=== PATIENT | female | born 1985 | race Caucasian/White ===

== ENCOUNTER → 2016-05-20 | Outpatient (CLI) | payer OTHER ==
[2016-05-20 09:38] LABS: MEAN CELL VOLUME 91.2 FL (80.0-100.0); PLATELET COUNT 187 TH/MM3 (150-450); RED BLOOD COUNT 3.62 MIL/MM3 (4.00-5.30); RED CELL DISTRIBUTION WIDTH 13.2 % (11.6-17.2); REVIEW FLAG FINAL; WHITE BLOOD COUNT 9.7 TH/MM3 (4.0-11.0)
== END ==
LOC: CLAB 08:08
PROVIDERS: ATTEND Obstetrics & Gynecology
DX: R74.0 Nonspecific elevation of levels of transaminase and lactic acid dehydrogenase [LDH] (principal); Z33.1 Pregnant state, incidental
CPT/HCPCS: 36415; 82951; 85027

== ENCOUNTER 2016-07-25 23:45 | Inpatient (IN) | payer OTHER ==
[~2016-07-25] VITALS: Ht 160 cm; Wt 77.1 kg
[2016-07-26] VITALS (193 sets, daily range): BP systolic 110–154; BP diastolic 68–107; PULSE 64–108; RESP 16–18; TEMP 98.2–98.9
--- NOTE | 2016-07-26 00:26 | PD ---
HPI Chief Complaint LOF Date Seen: Jul 26, 2016 Travel History International Travel<30 Days: No Contact w/Intl Traveler<30Days: No Known Affected Area: No History of Present Illness HPI 31 yo @ 38w2d with VIDAL 08-07-2016. care with Dr. Dumont. with placenta previa, resolved and noted succinate lobe. Normal growth US. EFW 6lb6oz last week. Patient noted leakage of fluid at 22:30, clear to pink tinged and started to have UC q 5min. +FM. History Past Medical History Medical History: Denies Significant Hx Obstetric History Obstetric History G1 Past Surgical History Surgical History: No Previous Surgery Family History Family History: Negative Social History Alcohol Use: No Tobacco Use: No Substance Abuse: No Review of Systems General / Constitutional: No: Fever, Chills Eyes: No: Blurred Vision, Visual changes HENT: No: Headaches Cardiovascular: No: Chest Pain or Discomfort, Palpitations Respiratory: No: Cough, Short of Breath Gastrointestinal: Abdominal Pain (contractions), No: Nausea, Vomiting, Diarrhea Genitourinary: Discharge (clear LOF), No: Urgency, Frequency, Dysuria, Vaginal Bleeding Musculoskeletal: No: Limited ROM, Weakness Skin: No Rash, No Itching, No Lesions Neurologic: No: Focal Abnormalities, Coordination Problem Physical Exam Narrative GENERAL: Well-nourished, well-developed patient. NAD SKIN: Warm and dry. HEAD: Normocephalic and atraumatic. EYES: No scleral icterus. No injection or drainage. ENT: No nasal drainage noted. Mucous membranes pink. Airway patent. NECK: No JVD. CARDIOVASCULAR: Regular rate and rhythm without murmurs, gallops, or rubs. RESPIRATORY: Breath sounds equal bilaterally. No accessory muscle use. ABDOMEN/GI: Abdomen soft, non-tender, , no rebound, no guarding Gravid GENITOURINARY: External Genitalia: intact and normal in appearance SVE 1/70%/-2 Amnisure + FHT's: Category: I Baseline: 120 Reactive: + accelerations 155 Variability: mod Decels: [-] EXTREMITIES: No cyanosis, +2 edema, NT. UE DTR +2 BACK: Nontender without obvious deformity. No CVA tenderness. NEUROLOGICAL: Awake and alert. Motor and sensory grossly within normal limits. Normal speech. Data Data Vital Signs Reviewed: Yes Orders Vital Signs (Adult) .ON ADMISSION (07/26/16 00:03) ^ Labor Status (07/26/16 00:03) ^ Non Stress Test (07/26/16 00:03) Pamg-1 Test .ONCE (07/26/16 00:03) MDM Narrative Course / MDM 38w2d PROM Elevated BPs - asymptomatic CAT I FHT Plan Admit GBS negative Expectant management, pitocin augmentation as indicated. PIH labs ordered, patient is asymptomatic. Discussed Magnesium Sulfate if needed for elevated BPs, possible pre-eclampsia. Attending Attestation Dr. Marc for Dr. Dumont. Kerry Joshua MD Jul 26, 2016 00:26 Expectant management, pitocin augmentation as indicated. PIH labs ordered, patient is asymptomatic. Attending Attestation Dr. Marc for Dr. Dumont. Kerry Joshua MD Jul 26, 2016 00:26
[2016-07-26] MEDS: LACTATED RINGER'S 1000 ML INJ 1,000 ML IV SCH ×2 (00:53→10:10)
[2016-07-26] MEDS ORDERED: LACTATED RINGER'S 1000 ML INJ 1,000 ML IV PRN (00:53)
--- NOTE | 2016-07-26 00:53 | HHI.HP ---
History & Physical H&P Patient Name: Oralia Merrill Unit Number: [id number] Date of : 1985 Patient Status: Admitted Inpatient Attending Doctor: Breanne Marc MD HPI HPI Chief Complaint LOF Date Seen: Jul 26, 2016 Travel History International Travel<30 Days: No Contact w/Intl Traveler<30Days: No Known Affected Area: No History of Present Illness HPI 31 yo @ 38w2d with VIDAL 08-07-2016. care with Dr. Dumont. with placenta previa, resolved and noted succinate lobe. Normal growth US. EFW 6lb6oz last week. Patient noted leakage of fluid at 22:30, clear to pink tinged and started to have UC q 5min. +FM. History (Limited) History Past Medical History Medical History: Denies Significant Hx Obstetric History Obstetric History G1 Past Surgical History Surgical History: No Previous Surgery Family History Family History: Negative Social History Alcohol Use: No Tobacco Use: No Substance Abuse: No Allergies-Medications Allergies-Medications ROS Review of Systems General / Constitutional: No: Fever, Chills Eyes: No: Blurred Vision, Visual changes HENT: No: Headaches Cardiovascular: No: Chest Pain or Discomfort, Palpitations Respiratory: No: Cough, Short of Breath Gastrointestinal: Abdominal Pain (contractions), No: Nausea, Vomiting, Diarrhea Genitourinary: Discharge (clear LOF), No: Urgency, Frequency, Dysuria, Vaginal Bleeding Musculoskeletal: No: Limited ROM, Weakness Skin: No Rash, No Itching, No Lesions Neurologic: No: Focal Abnormalities, Coordination Problem Physical Exam Physical Exam Narrative GENERAL: Well-nourished, well-developed patient. NAD SKIN: Warm and dry. HEAD: Normocephalic and atraumatic. EYES: No scleral icterus. No injection or drainage. ENT: No nasal drainage noted. Mucous membranes pink. Airway patent. NECK: No JVD. CARDIOVASCULAR: Regular rate and rhythm without murmurs, gallops, or rubs. RESPIRATORY: Breath sounds equal bilaterally. No accessory muscle use. ABDOMEN/GI: Abdomen soft, non-tender, , no rebound, no guarding Gravid GENITOURINARY: External Genitalia: intact and normal in appearance SVE 1/70%/-2 Amnisure + FHT's: Category: I Baseline: 120 Reactive: + accelerations 155 Variability: mod Decels: [-] EXTREMITIES: No cyanosis, +2 edema, NT. UE DTR +2 BACK: Nontender without obvious deformity. No CVA tenderness. NEUROLOGICAL: Awake and alert. Motor and sensory grossly within normal limits. Normal speech. Data Data Data Vital Signs Reviewed: Yes Orders Vital Signs (Adult) .ON ADMISSION (07/26/16 00:03) ^ Labor Status (07/26/16 00:03) ^ Non Stress Test (07/26/16 00:03) Pamg-1 Test .ONCE (07/26/16 00:03) MDM MDM Narrative Course / MDM 38w2d PROM Elevated BPs - asymptomatic CAT I FHT Plan Admit GBS negative Expectant management, pitocin augmentation as indicated. PIH labs ordered, patient is asymptomatic. Discussed Magnesium Sulfate if needed for elevated BPs, possible pre-eclampsia. Attending Attestation Dr. Marc for Dr. Dumont. Kerry Joshua MD Jul 26, 2016 00:26 Kerry Joshua MD Jul 26, 2016 00:53
[2016-07-26] MEDS ORDERED: SODIUM CHLORID 0.9% 500 ML INJ 500 ML IV PRN (01:00)
[2016-07-26] MEDS ORDERED: MINERAL OIL 10 ML VIAL TOPICAL PRN (01:00)
[2016-07-26] MEDS ORDERED: LIDOCAINE HCL 1% 50 ML VIAL I-DERMAL PRN (01:00)
[2016-07-26] MEDS ORDERED: LIDOCAINE HCL 1% 50 ML VIAL INFIL PRN (01:00)
[2016-07-26] MEDS ORDERED: OXYTOCIN 30 UNITS-500ML PREMIX 500 ML IV ONE (01:00)
[2016-07-26] MEDS ORDERED: ONDANSETRON HCL 4 MG/2 ML VIAL IV PRN (01:00)
[2016-07-26] MEDS ORDERED: CITRIC ACID-SODIUM CITRATE LIQ 30 ML UDC PO SCH (01:00)
[2016-07-26 01:07] LABS: AUTOMATED NEUTROPHIL # 6.5 TH/MM3 (1.8-7.7); BASOPHIL # 0.1 TH/MM3 (0-0.2); BASOPHIL % 1.5 % (0.0-2.0); EOSINOPHIL # 0.1 TH/MM3 (0-0.4); EOSINOPHIL % 1.4 % (0.0-4.0); HEMATOCRIT 32.2 % (35.0-46.0); HEMO FLAGS DIFF FINAL; LYMPH % 14.7 % (9.0-44.0); LYMPHOCYTE # 1.3 TH/MM3 (1.0-4.8); MEAN CELL VOLUME 90.5 FL (80.0-100.0); MEAN CORPUSCULAR HGB CONC 35.4 % (32.0-36.0); MONO % 10.7 % (0.0-8.0); NEUT % 71.7 % (16.0-70.0); PLATELET COUNT 202 TH/MM3 (150-450); RED BLOOD COUNT 3.56 MIL/MM3 (4.00-5.30); RED CELL DISTRIBUTION WIDTH 14.2 % (11.6-17.2); WHITE BLOOD COUNT 9.1 TH/MM3 (4.0-11.0)
[2016-07-26] MEDS ORDERED: SODIUM CHLOR 0.9% 1000 ML INJ 1,000 ML IV PRN (01:13)
[2016-07-26 01:16] LABS: BLOOD, URINE TRACE (NEG); COMMENT (UR) CULT NOT INDICATED; CULTURE IF INDICATED CULT NOT INDICATED; GLUCOSE,URINE NEG (NEG); KETONE, URINE NEG (NEG); MUCUS URINE FEW /lpf (OCC); NITRITE,URINE NEG (NEG); SQUAMOUS EPITHELIAL CELL URINE 1 /hpf (0-5); URINE COLOR LIGHT-YELLOW (YELLW/STRAW)
[2016-07-26 01:20] LABS: ALT (GPT) 19 U/L (10-53); ANION GAP 10 MEQ/L (5-15); AST (GOT) 20 U/L (15-37); BICARBONATE 22.3 MEQ/L (21.0-32.0); BLOOD UREA NITROGEN 7 MG/DL (7-18); CHLORIDE 108 MEQ/L (98-107); GLOMERULAR FILTRATION RATE 112 ML/MIN (>89); POTASSIUM 3.9 MEQ/L (3.5-5.1); SODIUM (NA) 140 MEQ/L (136-145); URIC ACID 4.4 MG/DL (2.6-6.0)
[2016-07-26 01:22] LABS: ALKALINE PHOSPHATASE 165 U/L (45-117); TOTAL BILIRUBIN ADULT 0.3 MG/DL (0.2-1.0)
[2016-07-26] MEDS ORDERED: ePHEDrine/NS 25 MG/5 ML SYR ONE (06:31)
[2016-07-26] MEDS ORDERED: fentaNYL 2MCG-BUPIV 0.125% INJ 100 ML ONE (06:31)
[2016-07-26] MEDS: OXYTOCIN 30 UNITS/NS 500ML PREMIX IV SCH ×2 (07:16→16:45)
[2016-07-26] MEDS ORDERED: DO NOT ADMINISTER ANTICOAGULANTS PRN (08:00)
[2016-07-26] MEDS ORDERED: NO SYSTEM NARCOTICS PRN (08:00)
[2016-07-26] MEDS ORDERED: ePHEDrine/NS 25 MG/5 ML SYR IV PRN (08:00)
[2016-07-26] MEDS: fentaNYL 2MCG-BUPIV 0.125% 100 ML EPIDURAL SCH ×2 (13:18→18:41)
[2016-07-26] MEDS ORDERED: DIPHTH/TETANUS/ACEL PERTUSSIS (BOOSTER) 0.5 ML VIAL/PFS IM ONE (16:00)
[2016-07-26] MEDS ORDERED: MEASLES, MUMPS, RUBELLA VACCINE 0.5 ML VIAL SQ ONE (16:00)
--- NOTE | 2016-07-26 22:27 | PD.OB.DELI ---
Delivery Date: Jul 26, 2016 Anesthesia: Epidural Episiotomy: Midline Vaginal Delivery: Normal, Spontaneous Presentation: Occiput anterior Nuchal Cord: None Delayed cord clamping (45 sec): Yes Infant: Male, Single One Minute : 8 Five Minute : 9 Weight: 7-4 Placenta: Spontaneous delivery, Intact, 3 vessel cord Laceration: Episiotomy, 3 deg Repair: Chromic interrupted, Chromic running, Vicryl interrupted Justine Edwards MD Jul 26, 2016 22:27
[2016-07-26] MEDS ORDERED: BENZOCAINE 20% TOPICAL SPRAY 60 ML CAN TOPICAL PRN (22:30)
[2016-07-26] MEDS ORDERED: ONDANSETRON ODT 4 MG TAB PO PRN (22:30)
[2016-07-26] MEDS ORDERED: WITCH HAZEL 50%/GLYCERIN 12.5% 40 PAD JAR TOPICAL PRN (22:30)
[2016-07-26] MEDS ORDERED: oxyCODONE/ACETAMINOPHEN 5 MG/325 MG TAB PO PRN ×2 (22:30)
[2016-07-26] MEDS ORDERED: ALUMINUM/MAGNESIUM/SIMETH 30 ML CUP PO PRN (22:30)
[2016-07-26] MEDS ORDERED: ACETAMINOPHEN 325 MG TAB PO PRN (22:30)
[2016-07-26] MEDS ORDERED: ZOLPIDEM TARTRATE 5 MG TAB PO PRN (22:30)
[2016-07-26] MEDS ORDERED: SODIUM CHLORIDE 0.9% FLUSH 10 ML FLUSH IV FLUSH PRN (22:30)
[2016-07-26] MEDS: IBUPROFEN 600 MG TAB PO PRN (23:00)
[2016-07-27 01:00] VITALS: BP 131/81; PULSE 96; RESP 20; TEMP 98.2
[2016-07-27] MEDS: DOCUSATE SODIUM 50 MG/SENNA 8.6 MG TAB PO PRN ×2 (01:08→14:13)
[2016-07-27] MEDS: IBUPROFEN 600 MG TAB PO PRN ×2 (07:32→17:01)
[2016-07-27] MEDS ORDERED: SODIUM CHLORIDE 0.9% FLUSH 10 ML FLUSH IV FLUSH SCH (09:00)
--- NOTE | 2016-07-27 16:39 | HHI.OB ---
Subjective Post Day: 1 Remarks Pt doing well, some perineal pain but not too much Objective Vitals/I&O Vital Signs Date Time Temp Pulse Resp B/P Pulse Ox O2 Delivery O2 Flow Rate FiO2 07/27/16 01:00 131/81 07/27/16 01:00 98.2 96 20 07/26/16 23:46 108 135/68 07/26/16 23:36 18 07/26/16 23:30 91 125/83 07/26/16 23:25 18 07/26/16 23:15 93 126/76 07/26/16 23:03 18 07/26/16 23:01 96 130/86 07/26/16 22:51 18 07/26/16 22:30 18 07/26/16 22:00 18 07/26/16 21:15 98.6 18 07/26/16 21:00 83 143/91 07/26/16 20:30 85 149/87 07/26/16 20:21 18 07/26/16 20:15 76 144/85 07/26/16 20:15 18 07/26/16 20:04 82 146/87 07/26/16 19:45 94 154/95 07/26/16 19:34 18 07/26/16 19:30 92 138/87 07/26/16 19:15 83 07/26/16 19:10 80 07/26/16 19:05 82 07/26/16 19:00 18 07/26/16 19:00 80 150/95 07/26/16 19:00 82 07/26/16 18:55 72 07/26/16 18:50 74 07/26/16 18:45 98.3 07/26/16 18:45 71 07/26/16 18:45 81 140/85 07/26/16 18:41 16 07/26/16 18:40 79 07/26/16 18:35 82 07/26/16 18:30 72 07/26/16 18:30 68 130/81 07/26/16 18:25 68 07/26/16 18:20 74 07/26/16 18:15 71 133/81 07/26/16 18:15 72 07/26/16 18:10 84 07/26/16 18:05 102 4/24/17 18:00 79 07/26/16 18:00 84 18 145/95 07/26/16 17:50 77 07/26/16 17:45 98.5 07/26/16 17:45 77 128/86 07/26/16 17:45 77 07/26/16 17:40 73 07/26/16 17:35 82 07/26/16 17:30 76 07/26/16 17:30 91 149/94 07/26/16 17:30 16 07/26/16 17:25 73 07/26/16 17:20 74 07/26/16 17:15 73 147/94 07/26/16 17:15 75 07/26/16 17:10 82 07/26/16 17:05 77 07/26/16 17:00 82 144/104 07/26/16 17:00 83 07/26/16 16:55 77 07/26/16 16:50 86 07/26/16 16:45 74 134/84 07/26/16 16:40 81 Objective Remarks GENERAL: Well-nourished, well-developed patient. CARDIOVASCULAR: Regular rate and rhythm without murmurs, gallops, or rubs. RESPIRATORY: Breath sounds equal bilaterally. No accessory muscle use. ABDOMEN/GI: Abdomen soft, non-tender. Fundus: Firm, non-tender at umbilicus. GENITOURINARY: Light to moderate bleeding. EXTREMITIES: No cyanosis or edema, non-tender, without signs of DVT. Medications and IVs Current Medications Medications (Trade) Dose Ordered Sig/Kody Route Start Time Stop Time Status Last Admin Lactated Ringer's 1,000 ml @ 125 mls/hr Q8H IV 07/26/16 00:53 07/26/16 10:10 Lactated Ringer's 1,000 ml @ 3,000 mls/hr Q20M PRN IV 07/26/16 00:53 Sodium Chloride 500 ml @ 1,000 mls/hr ONCE PRN IV 07/26/16 01:00 08/02/16 00:59 (NS 1000 ml Inj) 1,000 ml @ 100 mls/hr Q10H PRN IV 07/26/16 01:13 (fentaNYL INJ) 50 mcg Q1H PRN IV PUSH 07/26/16 01:00 07/26/16 06:52 (fentaNYL INJ) 100 mcg Q1H PRN IV PUSH 07/26/16 01:00 Mineral Oil 10 ml 10 ml UNSCH PRN TOPICAL 07/26/16 01:00 Oxytocin 500 ml @ 0 mls/hr TITRATE IV 07/26/16 06:45 07/26/16 16:45 (fentaNYL 2MCG-BUPIV 0.125% INJ) 100 ml @ 0 mls/hr TITRATE EPIDURAL 07/26/16 08:00 07/26/16 18:41 (NS Flush) 2 ml BID IV FLUSH 07/27/16 09:00 (NS Flush) 2 ml UNSCH PRN IV FLUSH 07/26/16 22:30 (Tylenol) 650 mg Q4H PRN PO 07/26/16 22:30 (Motrin) 600 mg Q6H PRN PO 07/26/16 22:30 07/27/16 07:32 (Percocet 5-325 Mg) 1 tab Q4H PRN PO 07/26/16 22:30 (Percocet 5-325 Mg) 2 tab Q4H PRN PO 07/26/16 22:30 07/26/16 23:00 (Americaine 20% Top Spr) 1 spray Q4H PRN TOPICAL 07/26/16 22:30 07/27/16 01:09 (Tucks Pads) 1 applic QID PRN TOPICAL 07/26/16 22:30 07/27/16 01:08 (Verónica-Colace) 2 tab Q12H PRN PO 07/26/16 22:30 07/27/16 14:13 (Ambien) 5 mg HS PRN PO 07/26/16 22:30 (Mag-Al Plus Susp Liq) 15 ml Q8H PRN PO 07/26/16 22:30 (Zofran Odt) 4 mg Q6H PRN PO 07/26/16 22:30 Assessment/Plan Assessment and Plan PPD # 1 s/p with a third degree extension of episiotomy doing well 1. routine care Discharge Planning plan for dc in [facility],Justine Garcia MD Jul 27, 2016 16:39
[2016-07-27 20:25] VITALS: BP 140/94; PULSE 89; RESP 18; TEMP 97.8
[2016-07-28] MEDS: LACTATED RINGER'S 1000 ML INJ 1,000 ML IV SCH (01:36)
[2016-07-28] MEDS: DOCUSATE SODIUM 50 MG/SENNA 8.6 MG TAB PO PRN (02:40)
[2016-07-28] MEDS: IBUPROFEN 600 MG TAB PO PRN ×2 (02:40→12:00)
[2016-07-28 08:00] VITALS: BP 131/85; PULSE 77; RESP 18; TEMP 98.8
--- NOTE | 2016-07-28 13:03 | HHI.DCPOC ---
Discharge Care Plan Your Health Problems Are: Vaginal delivery Report Symptoms to Your Doctor -Temperate above 100.5 degrees -Redness, of incision or excessive or foul smelling drainage -Unusual pain or calf pain -Increased vaginal bleeding -Painful or difficulty urinating -Feelings of extreme sadness or anxiety after 2 weeks Goals to Promote Your Health * To prevent worsening of your condition and complications * To maintain your health at the optimal level Directions to Meet Your Goals Take your medications as prescribed Follow your dietary instruction Follow activity as directed Ensure plenty of rest for recovery Drink fluids for hydration Keep your appointments as scheduled Take your immunizations and boosters as scheduled If your symptoms worsen call your PCP, if no PCP go to Urgent Care Center or Emergency Room Smoking is Dangerous to Your Health. Avoid second hand smoke Call the 24-hour crisis hotline for domestic abuse at Justine Edwards MD Jul 28, 2016 13:03
== END 2016-07-28 18:28 | disposition home or self-care (01) | DRG 775 ==
LOC: HOBED 23:45 → H2EB 07-26 00:24 → H1EA 07-27 00:10
PROVIDERS: ADMIT Obstetrics & Gynecology; ATTEND Obstetrics & Gynecology
PROC: 0DQR0ZZ Repair Anal Sphincter, Open Approach (ICD-10-PCS; principal; 2016-07-26)
PROC: 10E0XZZ Delivery of Products of Conception, External Approach (ICD-10-PCS; 2016-07-26)
PROC: 0W8NXZZ Division of Female Perineum, External Approach (ICD-10-PCS; 2016-07-26)
PROC: 00HU33Z Insertion of Infusion Device into Spinal Canal, Percutaneous Approach (ICD-10-PCS; 2016-07-26)
PROC: 3E0R3CZ (ICD-10-PCS; 2016-07-26)
DX: O70.20 Third degree perineal laceration during delivery, unspecified (principal); Z37.0 Single live birth; Z3A.38 38 weeks gestation of pregnancy
CPT/HCPCS: 59025; 80053; 81001; 84112; 84550; 85025; 86900; 86901; 88307; 90715; J2405; J2590; J3010; J7120

== ENCOUNTER → 2017-06-07 | Outpatient (CLI) | payer OTHER ==
[2017-06-07 11:29] LABS: AUTOMATED NEUTROPHIL # 4.1 TH/MM3 (1.8-7.7); BASOPHIL % 0.6 % (0.0-2.0); EOSINOPHIL # 0.1 TH/MM3 (0-0.4); EOSINOPHIL % 1.1 % (0.0-4.0); HEMATOCRIT 36.1 % (35.0-46.0); HEMOGLOBIN 12.5 GM/DL (11.6-15.3); LYMPH % 22.3 % (9.0-44.0); LYMPHOCYTE # 1.4 TH/MM3 (1.0-4.8); MEAN CELL VOLUME 88.6 FL (80.0-100.0); MEAN CORPUSCULAR HEMOGLOBIN 30.8 PG (27.0-34.0); MEAN CORPUSCULAR HGB CONC 34.8 % (32.0-36.0); MEAN PLATELET VOLUME 7.1 FL (7.0-11.0); MONO % 10.2 % (0.0-8.0); MONOCYTE # 0.6 TH/MM3 (0-0.9); NEUT % 65.8 % (16.0-70.0); PLATELET COUNT 237 TH/MM3 (150-450); RED BLOOD COUNT 4.07 MIL/MM3 (4.00-5.30); RED CELL DISTRIBUTION WIDTH 13.2 % (11.6-17.2); WHITE BLOOD COUNT 6.2 TH/MM3 (4.0-11.0)
[2017-06-07 11:31] LABS: BILIRUBIN, URINE NEG (NEG); BLOOD, URINE NEG (NEG); GLUCOSE,URINE NEG (NEG); KETONE, URINE NEG (NEG); NITRITE,URINE NEG (NEG); URINE COLOR YELLOW (YELLW/STRAW); URINE LEUKOCYTE ESTERASE NEG (NEG)
[2017-06-07 11:58] LABS: TOTAL T3 98 NG/DL (60-181)
[2017-06-07 12:06] LABS: FREE T4 0.84 NG/DL (0.76-1.46)
[2017-06-07 14:02] LABS: HEPATITIS B SURFACE ANTIGEN NEGATIVE (NEGATIVE)
== END ==
LOC: CLAB 10:50
PROVIDERS: ATTEND Obstetrics & Gynecology
DX: Z11.4 Encounter for screening for human immunodeficiency virus [HIV] (principal); Z33.1 Pregnant state, incidental
CPT/HCPCS: 36415; 81001; 84144; 84439; 84443; 84480; 84702; 85025; 86592; 86703; 86762; 86850; 86900; 86901; 87340

== ENCOUNTER → 2017-07-08 | Outpatient (CLI) | payer OTHER ==
[2017-07-08 12:27] LABS: FREE T4 0.83 NG/DL (0.76-1.46)
== END ==
LOC: CLAB 10:16
PROVIDERS: ATTEND Obstetrics & Gynecology
DX: Z13.29 Encounter for screening for other suspected endocrine disorder (principal)
CPT/HCPCS: 36415; 84439; 84443; 84480

== ENCOUNTER 2018-01-11 05:28 | Inpatient (IN) ==
--- NOTE | 2018-01-10 08:54 | MH ---
cc: Eric Dumont MD DATE OF ADMISSION: 01/11/2018 ADMITTING DIAGNOSIS: 1. Term , breech presentation. HISTORY OF PRESENT ILLNESS: The patient is a 32-year-old white female, para 1-0-0-1 with an EDC of 01/15/2018 by early ultrasound. Her course was benign. She has a persistent breech at term, and is now admitted for delivery. PAST SURGICAL HISTORY: Third molars. OBSTETRIC HISTORY: One vaginal delivery at term, in 07/2016, A son. MEDICATIONS: Vitamins. ALLERGIES: Pediazole. TRANSFUSIONS: None. SOCIAL HISTORY: She is . She is an RN at [employer]. Alcohol, tobacco, drugs are none. REVIEW OF SYSTEMS: Negative. PHYSICAL EXAMINATION: GENERAL: This is a well-nourished, well-developed white female. VITAL SIGNS: Stable. HEENT: Normal. CHEST: Clear. HEART: Regular rate. BREASTS: Symmetrical. ABDOMEN: Benign. PELVIC: Normal external genitalia and BUS is normal. Cervix normal. EFW 3600 grams, breech presentation. Cervix closed. ASSESSMENT As above. She is now admitted for primary . While in the office, the risks and benefits and complications have been accepted. Ultrasound will be done in the center to check the position prior to surgery. Placenta is maternal right. MD ISHAN Guy/sean , 08:26 AM , 08:31 AM
[2018-01-11 06:33] LABS: Baso % (Auto) 0.6 % (0.0-2.0); Eos # (Auto) 0.1 th/mm3 (0.0-0.4); Eos % (Auto) 1.5 % (0.0-4.0); Hematocrit 31.1 % (35.0-46.0); Hemoglobin 10.6 gm/dL (11.6-15.3); Lymph # (Auto) 1.4 th/mm3 (1.0-4.8); Mean Corpuscular HGB Conc 34.1 % (32.0-36.0); Mean Corpuscular Hemoglobin 30.6 pg (27.0-34.0); Mean Corpuscular Volume 89.8 fL (80.0-100.0); Mean Platelet Volume 7.6 fL (7.0-11.0); Neut # (Auto) 5.4 th/mm3 (1.8-7.7); Neut % (Auto) 67.9 % (16.0-70.0); Platelet Count 178 th/mm3 (150-450); Red Blood Count 3.46 mil/mm3 (4.00-5.30); Red Cell Distribution Width 14.4 % (11.6-17.2); White Blood Count 7.9 th/mm3 (4.0-11.0)
[2018-01-11 06:45] LABS: Bilirubin,Urine Negative (Negative); Clarity,Urine Hazy (Clear); Color,Urine Yellow (Yellw/Straw); Glucose,Urine (UA) Negative (Negative); Leukocyte Esterase,Urine Negative (Negative); Mucus,Urine Few /lpf (Occasional); Nitrite,Urine Negative (Negative); Specific Gravity,Urine 1.015 (1.002-1.035); Squamous Epithelial Cell,Urine 1 /hpf (0-5)
[2018-01-11 06:48] LABS: Amphetamine Screen,Urine Neg (Neg); Barbiturate Screen,Urine Neg (Neg); Cannabinoid Screen,Urine Neg (Neg); Cocaine Screen,Urine Neg (Neg)
[2018-01-11] MEDS: Citric Acid/Sodium Citrate Liq 30 ML UDC PO SCH ×2 (06:54→07:09)
[2018-01-11 06:55] LABS: Opiate Screen,Urine Neg (Neg)
[2018-01-11] MEDS ORDERED: ceFAZolin 2 GM Premix Inj 2 GM/50 ML PIGGYBACK IV.SIG ONE (07:00)
[2018-01-11] MEDS ORDERED: Morphine Sulfate PF Inj 5 MG/10 ML Ampul ONE (07:07)
[2018-01-11] MEDS ORDERED: Simethicone 80 MG Chew Tablet PO PRN (07:40)
[2018-01-11] MEDS ORDERED: Senna/Docusate Sodium 8.6/50 MG Tablet PO PRN (07:40)
[2018-01-11] MEDS ORDERED: Oxytocin 30 Units/500ml Premix 30 UNITS/500 ML BAG IV.SIG ONE (07:40)
[2018-01-11] MEDS ORDERED: Phenylephrine/NS 1000 MCG/10ML Syringe IV.PUSH ONE (08:54)
[2018-01-11] MEDS ORDERED: Ketorolac Inj 30 MG/ML (IVP) Vial IV.PUSH ONE (08:54)
[2018-01-11] MEDS ORDERED: Ketorolac Inj 30 MG/ML (IVP) Vial IM ONE (08:54)
[2018-01-11] MEDS ORDERED: Ketorolac Inj 30 MG/ML (IVP) Vial IV.PUSH PRN (10:02)
[2018-01-11] MEDS ORDERED: Oxytocin 30 Units/500ml Premix 30 UNITS/500 ML BAG ONE (10:22)
[2018-01-11] MEDS ORDERED: Oxytocin 30 Units/500ml Premix 30 UNITS/500 ML BAG IV.SIG PRN (12:41)
--- NOTE | 2018-01-11 13:04 | MP ---
cc: Eric Dumont MD DATE OF OPERATION: 01/11/2018 PREOPERATIVE DIAGNOSES: 1. Term . 2. Burt breech presentation. POSTOPERATIVE DIAGNOSES: 1. Term . 2. Burt breech presentation. 3. Delivered. PROCEDURE PERFORMED: Primary low transverse section. ANESTHESIA: Spinal. SURGEON: Eric Dumont MD SYSTEM SALES CONSULTANT: Salma Day ESTIMATED BLOOD LOSS: 500 mL FLUIDS: 1.5 liters crystalloid. OBJECTIVE FINDINGS: Following induction of adequate spinal anesthesia, the patient was prepped and draped supine on the operating table in left lateral tilt position in the usual sterile fashion, with the bladder being drained via Wesley catheterization. The abdomen was opened through a Pfannenstiel incision using a knife to cut down through the skin to the fascia. The fascia opened transversely, stripped from the muscles, rectus muscle split in the midline and the peritoneum opened sharply. The bladder flap was taken down sharply and retracted inferiorly with the Sunday blade. The lower uterine segment was incised transversely with a knife and extended with blunt dissection. Membranes ruptured for clear fluid. Baby was in the left sacral transverse position. With fundal pressure and punchboard filling machine operator guidance, the hips delivered and delivery progressed to the shoulder blades. Each arm was then reduced and the head easily slipped through the wound. Nuchal cord x2 was reduced. Mouth was suctioned. The cord clamped and cut and the baby passed to awaiting team, a viable vigorous female, Apgars 8 and 9, weight 8 pounds even. Cord blood for typing sent for donation and the uterine cavity cleaned with laps. Uterus was exteriorized and closed in 2 layers of running suture, first with a running locking stitch of 0 Vicryl, second with a running imbricating stitch of 0 Vicryl. On posterior inspection uterus and tubes were normal. The uterus was now replaced in the cavity. Irrigation performed. No bleeding was evident and the bladder flap was closed with running stitch of 3-0 Vicryl. All laps and retractors were removed. Counts were correct. The anterior peritoneum closed with running 2-0 Vicryl, the fascia with a running locking stitch of 0 Vicryl corner to midline and tied, subcutaneous 3-0 Vicryl, the skin with a running subcuticular 3-0 Monocryl. Dermabond applied. All counts were correct and the patient was awakened and taken to the recovery room in good condition. MD ISHAN Guy/radu , 12:47 PM , 12:52 PM
[2018-01-11] MEDS ORDERED: Influenza (Quadrivalent) Vaccine 0.5 ML Syringe IM ONE (14:30)
[2018-01-11] MEDS ORDERED: Zolpidem Tartrate 5 MG Tablet PO PRN (21:00)
[2018-01-12 05:50] LABS: Baso % (Auto) 0.3 % (0.0-2.0); Eos # (Auto) 0.1 th/mm3 (0.0-0.4); Eos % (Auto) 1.3 % (0.0-4.0); Hemoglobin 8.1 gm/dL (11.6-15.3); Lymph # (Auto) 1.6 th/mm3 (1.0-4.8); Lymph % (Auto) 15.8 % (9.0-44.0); Mean Corpuscular HGB Conc 33.8 % (32.0-36.0); Mean Corpuscular Hemoglobin 30.8 pg (27.0-34.0); Mean Corpuscular Volume 91.1 fL (80.0-100.0); Mean Platelet Volume 7.5 fL (7.0-11.0); Mono % (Auto) 10.4 % (0.0-8.0); Neut # (Auto) 7.2 th/mm3 (1.8-7.7); Neut % (Auto) 72.2 % (16.0-70.0); Platelet Count 161 th/mm3 (150-450); Red Blood Count 2.64 mil/mm3 (4.00-5.30); Red Cell Distribution Width 14.2 % (11.6-17.2)
[2018-01-12 08:12] VITALS: O2SAT 100
[2018-01-12] MEDS ORDERED: Diphtheria/Tetanus/Pertussis Vaccine Inj 0.5 ML Syringe IM ONE (16:00)
[2018-01-12] MEDS ORDERED: Measles/Mumps/Rubella Vaccine Inj 0.5 ML Vial SQ ONE (16:00)
[2018-01-12 21:58] VITALS: TEMP 98.3
[2018-01-13 08:34] VITALS: BP 104/67; PULSE 88; RESP 20
--- NOTE | 2018-01-13 09:41 | MD ---
cc: Eric Dumont MD DATE OF DISCHARGE: 01/13/2018 ADMITTING DIAGNOSES: Term , matilde breech presentation. DISCHARGE DIAGNOSES: Term , matilde breech presentation, delivered. PROCEDURE: Primary low transverse section. HISTORY OF PRESENT ILLNESS: This is a 22-year-old white female, para 1-0-0-1, with EDC of 01/15/2018 by early ultrasound. course was benign. Panorama testing normal. Blood type positive. At term, the baby was in a persistent breech presentation. She was admitted for a primary on 01/11/2018, had a viable vigorous female. did well. Discharged home on 01/13/2018. DISCHARGE INSTRUCTIONS: She was advised NPV, light activity, no driving, return to see me in 1 week. She will use OTC Motrin and Tylenol for pain relief. She is . Her postoperative hematocrit was 24 and she was stable. She will take iron pills and vitamins daily. She will call me if any abnormal symptoms. MD ISHAN Guy/ambrocio , 08:40 AM , 08:45 AM
== END 2018-01-13 18:22 | disposition home or self-care (01) ==
LOC: H2E 05:28 → H1EA 11:29
PROVIDERS: ADMIT Obstetrics & Gynecology; ATTEND Obstetrics & Gynecology